=== PATIENT | male | born 1965 | race Caucasian/White ===

== ENCOUNTER 2018-02-03 06:41 | Emergency (ER) | payer MEDICAID, OTHER ==
[~2018-02-03] VITALS: Ht 175.3 cm; Wt 112.3 kg
[~2018-02-03 06:41] MED LIST: AMLO-511 PO; CLON.5 PO; METF-960 PO; QUET50XR PO; TRAZ150T79 PO; VENL-53 PO
[2018-02-03] MEDS ORDERED: METF-960 PO (07:01)
[2018-02-03] MEDS ORDERED: SERT100T12 PO (07:01)
[2018-02-03] MEDS ORDERED: LISI-661 PO (07:01)
[2018-02-03 07:13] LABS: GLUCOSE,POINT OF CARE 199 MG/DL (70-110)
[2018-02-03 07:50] VITALS: BP 123/78
== END 2018-02-03 07:57 | disposition home or self-care (01) ==
LOC: EMS 06:42
DX: F41.9 Anxiety disorder, unspecified (principal); F20.9 Schizophrenia, unspecified; Z79.84 Long term (current) use of oral hypoglycemic drugs; Z79.899 Other long term (current) drug therapy
CPT/HCPCS: 99284

== ENCOUNTER 2021-08-10 08:24 | Inpatient (IN) | payer MEDICAID, OTHER ==
[~2021-08-10] VITALS: Ht 175.3 cm; Wt 108.6 kg
[~2021-08-10 08:24] MED LIST changes: -AMLO-511 PO; -CLON.5 PO; +LISI-893 PO; +METF-1211 PO; -METF-960 PO; -QUET50XR PO; +SERT-162 PO; -TRAZ150T79 PO; -VENL-53 PO
[2021-08-10 09:05] LABS: BASOPHILS % (AUTO) 0.3 % (0.0-2.0); HEMATOCRIT 39.2 % (41-53); HEMOGLOBIN 13.4 g/dL (13.5-17.5); LYMPHOCYTES % (AUTO) 16.7 % (22.0-44.0); MEAN CORPUSCULAR HEMOGLOBIN 31.9 pg (26.0-34.0); MEAN CORPUSCULAR HGB CONC 34.2 G/dL (31.0-37.0); MEAN CORPUSCULAR VOLUME 93 fL (80-100); MONOCYTES # (AUTO) 0.5 K/uL (0.1-1.0); MONOCYTES % (AUTO) 8.2 % (2.0-9.0); NEUTROPHILS # (AUTO) 4.6 K/uL (1.8-7.7); NEUTROPHILS % (AUTO) 72.8 % (40.0-70.0); PLATELET COUNT (AUTO) 179 K/uL (150-450); RED CELL DISTRIBUTION WIDTH 13.2 % (11.5-14.5)
[2021-08-10 09:14] LABS: ANION GAP 4 mmol/L (8-16); CARBON DIOXIDE 33 mmol/L (22-29); CHLORIDE 101 mmol/L (98-107); CREATININE 0.97 mg/dL (0.60-1.30); GLOMERULAR FILTR. RATE CALC > 60 mL/min (>60); GLUCOSE,RANDOM 220 mg/dL (70-110); POTASSIUM 4.3 mmol/L (3.5-5.1); SODIUM SERUM 138 mmol/L (136-145); UREA NITROGEN, BLOOD 17 mg/dL (7-18)
[2021-08-10 09:15] LABS: AMPHET/METH SCREEN,URINE NEGATIVE (NEGATIVE); BARBITURATE SCREEN, URINE NEGATIVE (NEGATIVE); BENZODIAZEPINES SCREEN,URINE NEGATIVE (NEGATIVE); CANNABINOID SCREEN,URINE POSITIVE (NEGATIVE); COCAINE SCREEN,URINE NEGATIVE (NEGATIVE); METHADONE SCREEN, URINE NEGATIVE (NEGATIVE); OPIATE SCREEN,URINE NEGATIVE (NEGATIVE)
[2021-08-10 09:16] LABS: PHENCYCLIDINE SCREEN,URINE NEGATIVE (NEGATIVE)
[2021-08-10 09:20] LABS: ALANINE AMINOTRANSFERASE 19 U/L (12-78); ALBUMIN 3.6 g/dL (3.4-5.0); ALKALINE PHOSPHATASE 68 U/L (46-116); ASPARTATE AMINOTRANSFERASE 12 U/L (15-37); BILIRUBIN,TOTAL 0.4 mg/dL (0.1-1.0); TOTAL PROTEIN, SERUM 6.9 g/dL (6.4-8.2)
[2021-08-10] MEDS ORDERED: ZOLPIDEM TARTRATE 10 MG TABLET PO PRN (10:30)
[2021-08-10 10:44] LABS: APPEARANCE,URINE CLEAR (CLEAR); BILIRUBIN,URINE NEGATIVE (NEGATIVE); GLUCOSE, URINE (UA) NEGATIVE (NEGATIVE); KETONES,URINE NEGATIVE (NEGATIVE); LEUKOCYTE ESTERASE ,URINE NEGATIVE (NEGATIVE); NITRATE,URINE NEGATIVE (NEGATIVE); OCCULT BLOOD,URINE NEGATIVE (NEGATIVE); PROTEIN,URINE NEGATIVE (NEGATIVE); UROBILINOGEN,URINE <=1.0 mg/dL (<=1.0)
[2021-08-10 11:33] LABS: COVID AG,FIA SOURCE NASOPHARYNGEAL
[2021-08-10] MEDS ORDERED: TRAZ-257 PO (14:20)
[2021-08-10] MEDS ORDERED: HALOPERIDOL LACTATE 5 MG/ML VIAL IM ONE (17:15)
[2021-08-10] MEDS ORDERED: DiphenhydrAMINE HCL 50 MG/ML VIAL IM ONE (17:15)
[2021-08-10] MEDS ORDERED: LORazepam 2 MG/ML VIAL IM ONE (17:15)
[2021-08-10 20:44] VITALS: BP 151/90
[2021-08-10] MEDS ORDERED: PNEUMOCOCCAL VACCINE POLYVALENT 0.5 ML VIAL [PPSV23] IM. ONE (20:45)
[2021-08-11] MEDS: MetFORMIN HCL 500 MG TABLET PO SCH ×2 (06:51→16:32)
[2021-08-11] MEDS: LISINOPRIL 10 MG TABLET PO SCH (07:58)
[2021-08-11] MEDS ORDERED: PETROLATUM,WHITE 28 GM JELLY TP PRN (08:00)
[2021-08-11] MEDS ORDERED: ACETAMINOPHEN 325 MG TABLET PO PRN (08:00)
[2021-08-11] MEDS ORDERED: BENZOCAINE/MENTHOL LOZENGE PO PRN (08:00)
[2021-08-11] MEDS ORDERED: BACITRACIN 28 GM OINTMENT TP PRN (08:00)
[2021-08-11] MEDS ORDERED: ONDANSETRON HCL 4 MG TABLET PO PRN (08:00)
[2021-08-11] MEDS ORDERED: DOCUSATE SODIUM 100 MG CAPSULE PO PRN (08:00)
[2021-08-11] MEDS ORDERED: DEXTROSE 50%-WATER 25 GM/50 ML SYRINGE IVP PRN (08:00)
[2021-08-11] MEDS ORDERED: OMEPRAZOLE 20 MG CAPSULE PO PRN (08:00)
[2021-08-11] MEDS ORDERED: MAGNESIUM HYDROXIDE SUSPENSION 30 ML UDCUP PO PRN (08:00)
[2021-08-11] MEDS ORDERED: LOPERAMIDE HCL 2 MG CAPSULE PO PRN (08:00)
[2021-08-11] MEDS ORDERED: ALBUTEROL SULFATE HFA 90 MCG/PUFF 8 GM INHALER IH PRN (08:00)
[2021-08-11] MEDS ORDERED: CloNIDine HCL 0.1 MG TABLET PO PRN (08:00)
[2021-08-11] MEDS ORDERED: IBUPROFEN 600 MG TABLET PO PRN (08:00)
[2021-08-11 08:24] VITALS: BP 165/86
[2021-08-11] MEDS: INSULIN LISPRO 100 UNITS/ML SQ PRN ×2 (11:57→21:00)
[2021-08-11 12:11] LABS: GLUCOMETER DEV NAME(LOC) 3E.C; GLUCOSE,POINT OF CARE 179 MG/DL (70-110)
[2021-08-11 16:08] VITALS: BP 156/86
[2021-08-11 16:56] LABS: GLUCOMETER DEV NAME(LOC) 3E.C; GLUCOSE,POINT OF CARE 120 MG/DL (70-110)
[2021-08-11] MEDS: TraZODone HCL 50 MG TABLET PO SCH (20:25)
[2021-08-11 20:36] LABS: GLUCOMETER DEV NAME(LOC) 3E.C; GLUCOSE,POINT OF CARE 186 MG/DL (70-110)
[2021-08-12 06:26] LABS: GLUCOMETER DEV NAME(LOC) 3E.C; GLUCOSE,POINT OF CARE 168 MG/DL (70-110)
[2021-08-12] MEDS: INSULIN LISPRO 100 UNITS/ML SQ PRN ×3 (06:51→16:59)
[2021-08-12] MEDS: MetFORMIN HCL 500 MG TABLET PO SCH ×2 (07:04→16:50)
[2021-08-12 08:11] VITALS: BP 145/87
[2021-08-12] MEDS: LISINOPRIL 10 MG TABLET PO SCH (08:21)
[2021-08-12] MEDS: PARoxetine HCL 20 MG TABLET PO SCH (08:21)
[2021-08-12 11:26] LABS: GLUCOMETER DEV NAME(LOC) 3E.C; GLUCOSE,POINT OF CARE 211 MG/DL (70-110)
[2021-08-12 16:16] LABS: GLUCOMETER DEV NAME(LOC) 3E.C; GLUCOSE,POINT OF CARE 151 MG/DL (70-110)
[2021-08-12 16:21] VITALS: BP 164/87
[2021-08-12] MEDS: LORazepam 2 MG TABLET PO PRN (16:50)
[2021-08-12] MEDS: QUEtiapine FUMARATE 100 MG TABLET PO PRN (19:00)
[2021-08-12] MEDS: TraZODone HCL 50 MG TABLET PO SCH (20:38)
[2021-08-12 20:46] LABS: GLUCOMETER DEV NAME(LOC) 3E.C; GLUCOSE,POINT OF CARE 108 MG/DL (70-110)
[2021-08-13 06:31] LABS: GLUCOMETER DEV NAME(LOC) 3E.C; GLUCOSE,POINT OF CARE 138 MG/DL (70-110)
[2021-08-13] MEDS: INSULIN LISPRO 100 UNITS/ML SQ PRN ×3 (06:36→17:14)
[2021-08-13] MEDS: MetFORMIN HCL 500 MG TABLET PO SCH ×2 (06:46→17:00)
[2021-08-13 08:09] VITALS: BP 133/78
[2021-08-13] MEDS: LISINOPRIL 10 MG TABLET PO SCH (10:00)
[2021-08-13] MEDS: PARoxetine HCL 20 MG TABLET PO SCH (10:00)
[2021-08-13 11:41] LABS: GLUCOMETER DEV NAME(LOC) 3E.C; GLUCOSE,POINT OF CARE 212 MG/DL (70-110)
[2021-08-13] MEDS: QUEtiapine FUMARATE 100 MG TABLET PO PRN (16:00)
[2021-08-13 16:26] LABS: GLUCOMETER DEV NAME(LOC) 3E.C; GLUCOSE,POINT OF CARE 183 MG/DL (70-110)
[2021-08-13 16:48] VITALS: BP 149/89
[2021-08-13] MEDS: LORazepam 2 MG TABLET PO PRN (19:30)
[2021-08-13] MEDS: TraZODone HCL 50 MG TABLET PO SCH (20:41)
[2021-08-13 20:51] LABS: GLUCOMETER DEV NAME(LOC) 3E.C; GLUCOSE,POINT OF CARE 120 MG/DL (70-110)
[2021-08-14] MEDS: MetFORMIN HCL 500 MG TABLET PO SCH ×2 (06:33→17:38)
[2021-08-14] MEDS: INSULIN LISPRO 100 UNITS/ML SQ PRN ×4 (06:33→20:53)
[2021-08-14 06:36] LABS: GLUCOMETER DEV NAME(LOC) 3E.C; GLUCOSE,POINT OF CARE 193 MG/DL (70-110)
[2021-08-14 08:00] VITALS: BP 162/92
[2021-08-14] MEDS: PARoxetine HCL 20 MG TABLET PO SCH (08:53)
[2021-08-14] MEDS: LISINOPRIL 10 MG TABLET PO SCH (08:54)
[2021-08-14 12:07] LABS: GLUCOMETER DEV NAME(LOC) 3E.C; GLUCOSE,POINT OF CARE 227 MG/DL (70-110)
[2021-08-14 16:21] VITALS: BP 132/74
[2021-08-14 16:46] LABS: GLUCOMETER DEV NAME(LOC) 3E.C; GLUCOSE,POINT OF CARE 196 MG/DL (70-110)
[2021-08-14] MEDS: TraZODone HCL 50 MG TABLET PO SCH (20:42)
[2021-08-14 21:01] LABS: GLUCOMETER DEV NAME(LOC) 3E.C; GLUCOSE,POINT OF CARE 180 MG/DL (70-110)
[2021-08-15 06:16] LABS: GLUCOMETER DEV NAME(LOC) 3E.C; GLUCOSE,POINT OF CARE 172 MG/DL (70-110)
[2021-08-15] MEDS: INSULIN LISPRO 100 UNITS/ML SQ PRN ×3 (06:42→20:52)
[2021-08-15] MEDS: MetFORMIN HCL 500 MG TABLET PO SCH ×2 (06:44→17:20)
[2021-08-15 08:21] VITALS: BP 142/83
[2021-08-15 09:14] LABS: CHOL/HDL RATIO 3.2 (4.2-7.3)
[2021-08-15] MEDS: PARoxetine HCL 20 MG TABLET PO SCH (09:30)
[2021-08-15] MEDS: LISINOPRIL 10 MG TABLET PO SCH (09:30)
[2021-08-15 11:46] LABS: GLUCOMETER DEV NAME(LOC) 3E.C; GLUCOSE,POINT OF CARE 144 MG/DL (70-110)
[2021-08-15] MEDS: QUEtiapine FUMARATE 100 MG TABLET PO PRN (16:12)
[2021-08-15 16:36] LABS: GLUCOMETER DEV NAME(LOC) 3E.C; GLUCOSE,POINT OF CARE 167 MG/DL (70-110)
[2021-08-15 17:00] VITALS: BP 125/72
[2021-08-15] MEDS: TraZODone HCL 50 MG TABLET PO SCH (20:44)
[2021-08-15 21:06] LABS: GLUCOMETER DEV NAME(LOC) 3E.C; GLUCOSE,POINT OF CARE 180 MG/DL (70-110)
[2021-08-16 06:31] LABS: GLUCOMETER DEV NAME(LOC) 3E.C; GLUCOSE,POINT OF CARE 175 MG/DL (70-110)
[2021-08-16] MEDS: MetFORMIN HCL 500 MG TABLET PO SCH ×2 (07:01→17:11)
[2021-08-16] MEDS: INSULIN LISPRO 100 UNITS/ML SQ PRN ×3 (07:07→21:34)
[2021-08-16] MEDS: PARoxetine HCL 20 MG TABLET PO SCH (08:18)
[2021-08-16] MEDS: QUEtiapine FUMARATE 100 MG TABLET PO PRN (08:19)
[2021-08-16] MEDS: LISINOPRIL 10 MG TABLET PO SCH (08:19)
[2021-08-16 09:43] VITALS: BP 151/99
[2021-08-16 11:30] LABS: GLUCOMETER DEV NAME(LOC) 3E.C; GLUCOSE,POINT OF CARE 139 MG/DL (70-110)
[2021-08-16 16:00] VITALS: BP 140/81
[2021-08-16 17:06] LABS: GLUCOMETER DEV NAME(LOC) 3E.C; GLUCOSE,POINT OF CARE 157 MG/DL (70-110)
[2021-08-16] MEDS: TraZODone HCL 50 MG TABLET PO SCH (20:39)
[2021-08-16 22:36] LABS: GLUCOMETER DEV NAME(LOC) 3E.C; GLUCOSE,POINT OF CARE 152 MG/DL (70-110)
[2021-08-17 06:26] LABS: GLUCOMETER DEV NAME(LOC) 3E.C; GLUCOSE,POINT OF CARE 196 MG/DL (70-110)
[2021-08-17] MEDS: MetFORMIN HCL 500 MG TABLET PO SCH ×2 (06:56→16:35)
[2021-08-17] MEDS: INSULIN LISPRO 100 UNITS/ML SQ PRN ×3 (07:03→17:43)
[2021-08-17 08:29] VITALS: BP 140/78
[2021-08-17] MEDS: LISINOPRIL 10 MG TABLET PO SCH (09:22)
[2021-08-17] MEDS: PARoxetine HCL 20 MG TABLET PO SCH (09:22)
[2021-08-17] MEDS: QUEtiapine FUMARATE 100 MG TABLET PO PRN (09:24)
[2021-08-17 11:26] LABS: GLUCOMETER DEV NAME(LOC) 3E.C; GLUCOSE,POINT OF CARE 172 MG/DL (70-110)
[2021-08-17 14:34] LABS: COVID AG,FIA SOURCE NASOPHARYNGEAL
[2021-08-17 16:11] VITALS: BP 121/79
[2021-08-17 17:10] LABS: GLUCOMETER DEV NAME(LOC) 3E.C; GLUCOSE,POINT OF CARE 191 MG/DL (70-110)
[2021-08-17] MEDS: TraZODone HCL 50 MG TABLET PO SCH (20:11)
[2021-08-17 20:50] LABS: GLUCOMETER DEV NAME(LOC) 3E.C; GLUCOSE,POINT OF CARE 112 MG/DL (70-110)
[2021-08-18 06:16] LABS: GLUCOMETER DEV NAME(LOC) 3E.C; GLUCOSE,POINT OF CARE 185 MG/DL (70-110)
[2021-08-18] MEDS: MetFORMIN HCL 500 MG TABLET PO SCH ×2 (06:40→17:01)
[2021-08-18] MEDS: INSULIN LISPRO 100 UNITS/ML SQ PRN ×2 (06:43→17:05)
[2021-08-18 08:19] VITALS: BP 148/88
[2021-08-18] MEDS: PARoxetine HCL 20 MG TABLET PO SCH (08:47)
[2021-08-18] MEDS: LISINOPRIL 10 MG TABLET PO SCH (08:47)
[2021-08-18 10:51] LABS: GLUCOMETER DEV NAME(LOC) 3E.C; GLUCOSE,POINT OF CARE 134 MG/DL (70-110)
[2021-08-18 16:31] LABS: GLUCOMETER DEV NAME(LOC) 3E.C; GLUCOSE,POINT OF CARE 168 MG/DL (70-110)
[2021-08-18] MEDS: QUEtiapine FUMARATE 100 MG TABLET PO PRN (17:01)
[2021-08-18 17:14] VITALS: BP 112/68
[2021-08-18] MEDS: LORazepam 2 MG TABLET PO PRN (19:03)
[2021-08-18] MEDS: TraZODone HCL 50 MG TABLET PO SCH (20:22)
[2021-08-18 21:11] LABS: GLUCOMETER DEV NAME(LOC) 3E.C; GLUCOSE,POINT OF CARE 136 MG/DL (70-110)
[2021-08-19 06:13] LABS: GLUCOMETER DEV NAME(LOC) 3E.C; GLUCOSE,POINT OF CARE 139 MG/DL (70-110)
[2021-08-19] MEDS: MetFORMIN HCL 500 MG TABLET PO SCH ×2 (06:48→17:31)
[2021-08-19] MEDS: INSULIN LISPRO 100 UNITS/ML SQ PRN ×3 (07:13→16:37)
[2021-08-19 08:00] VITALS: BP 124/74
[2021-08-19] MEDS: LISINOPRIL 10 MG TABLET PO SCH (08:32)
[2021-08-19] MEDS: PARoxetine HCL 20 MG TABLET PO SCH (08:32)
[2021-08-19 12:51] LABS: GLUCOMETER DEV NAME(LOC) 3E.C; GLUCOSE,POINT OF CARE 241 MG/DL (70-110)
[2021-08-19 16:00] VITALS: BP 106/60
[2021-08-19 16:46] LABS: GLUCOMETER DEV NAME(LOC) 3E.C; GLUCOSE,POINT OF CARE 151 MG/DL (70-110)
[2021-08-19] MEDS: TraZODone HCL 50 MG TABLET PO SCH (20:24)
[2021-08-19] MEDS: QUEtiapine FUMARATE 100 MG TABLET PO PRN (20:24)
[2021-08-19 20:46] LABS: GLUCOMETER DEV NAME(LOC) 3E.C; GLUCOSE,POINT OF CARE 130 MG/DL (70-110)
[2021-08-20 06:51] LABS: GLUCOMETER DEV NAME(LOC) 3E.C; GLUCOSE,POINT OF CARE 134 MG/DL (70-110)
[2021-08-20] MEDS: INSULIN LISPRO 100 UNITS/ML SQ PRN ×3 (07:00→21:35)
[2021-08-20] MEDS: MetFORMIN HCL 500 MG TABLET PO SCH ×2 (07:00→17:48)
[2021-08-20 08:18] VITALS: BP 131/83
[2021-08-20] MEDS: PARoxetine HCL 20 MG TABLET PO SCH (11:22)
[2021-08-20] MEDS: LISINOPRIL 10 MG TABLET PO SCH (11:22)
[2021-08-20 11:26] LABS: GLUCOMETER DEV NAME(LOC) 3E.C; GLUCOSE,POINT OF CARE 184 MG/DL (70-110)
[2021-08-20] MEDS: QUEtiapine FUMARATE 100 MG TABLET PO PRN (16:30)
[2021-08-20 16:36] LABS: GLUCOMETER DEV NAME(LOC) 3E.C; GLUCOSE,POINT OF CARE 113 MG/DL (70-110)
[2021-08-20 17:00] VITALS: BP 147/79
[2021-08-20] MEDS: TraZODone HCL 50 MG TABLET PO SCH (21:16)
[2021-08-20 21:51] LABS: GLUCOMETER DEV NAME(LOC) 3E.C; GLUCOSE,POINT OF CARE 147 MG/DL (70-110)
[2021-08-21] MEDS: MetFORMIN HCL 500 MG TABLET PO SCH ×2 (06:36→17:10)
[2021-08-21 06:37] LABS: GLUCOMETER DEV NAME(LOC) 3E.C; GLUCOSE,POINT OF CARE 157 MG/DL (70-110)
[2021-08-21] MEDS: INSULIN LISPRO 100 UNITS/ML SQ PRN ×4 (06:42→20:53)
[2021-08-21 08:27] VITALS: BP 144/90
[2021-08-21] MEDS: PARoxetine HCL 20 MG TABLET PO SCH (08:50)
[2021-08-21] MEDS: QUEtiapine FUMARATE 100 MG TABLET PO PRN ×2 (08:50→16:13)
[2021-08-21] MEDS: LISINOPRIL 10 MG TABLET PO SCH (08:50)
[2021-08-21 11:36] LABS: GLUCOMETER DEV NAME(LOC) 3E.C; GLUCOSE,POINT OF CARE 153 MG/DL (70-110)
[2021-08-21 16:21] VITALS: BP 160/82
[2021-08-21 16:31] LABS: GLUCOMETER DEV NAME(LOC) 3E.C; GLUCOSE,POINT OF CARE 160 MG/DL (70-110)
[2021-08-21] MEDS: TraZODone HCL 50 MG TABLET PO SCH (20:37)
[2021-08-21 21:21] LABS: GLUCOMETER DEV NAME(LOC) 3E.C; GLUCOSE,POINT OF CARE 161 MG/DL (70-110)
[2021-08-22 05:56] LABS: GLUCOMETER DEV NAME(LOC) 3E.C; GLUCOSE,POINT OF CARE 147 MG/DL (70-110)
[2021-08-22] MEDS: MetFORMIN HCL 500 MG TABLET PO SCH ×2 (06:34→17:00)
[2021-08-22] MEDS: INSULIN LISPRO 100 UNITS/ML SQ PRN ×4 (06:34→21:02)
[2021-08-22 08:19] VITALS: BP 122/79
[2021-08-22] MEDS: LISINOPRIL 10 MG TABLET PO SCH (09:16)
[2021-08-22] MEDS: PARoxetine HCL 20 MG TABLET PO SCH (09:16)
[2021-08-22 11:01] LABS: GLUCOMETER DEV NAME(LOC) 3E.C; GLUCOSE,POINT OF CARE 158 MG/DL (70-110)
[2021-08-22 16:11] LABS: GLUCOMETER DEV NAME(LOC) 3E.C; GLUCOSE,POINT OF CARE 156 MG/DL (70-110)
[2021-08-22 16:57] VITALS: BP 157/75
[2021-08-22] MEDS: QUEtiapine FUMARATE 100 MG TABLET PO PRN (17:00)
[2021-08-22] MEDS: LORazepam 2 MG TABLET PO PRN (19:00)
[2021-08-22 21:01] LABS: GLUCOMETER DEV NAME(LOC) 3E.C; GLUCOSE,POINT OF CARE 153 MG/DL (70-110)
[2021-08-22] MEDS: TraZODone HCL 50 MG TABLET PO SCH (21:02)
[2021-08-23] MEDS: MetFORMIN HCL 500 MG TABLET PO SCH ×2 (06:44→16:11)
[2021-08-23 07:01] LABS: GLUCOMETER DEV NAME(LOC) 3E.C; GLUCOSE,POINT OF CARE 111 MG/DL (70-110)
[2021-08-23] MEDS: LISINOPRIL 10 MG TABLET PO SCH (07:58)
[2021-08-23] MEDS: PARoxetine HCL 20 MG TABLET PO SCH (07:58)
[2021-08-23 08:31] VITALS: BP 166/95
[2021-08-23 11:40] LABS: GLUCOMETER DEV NAME(LOC) 3E.C; GLUCOSE,POINT OF CARE 160 MG/DL (70-110)
[2021-08-23] MEDS: INSULIN LISPRO 100 UNITS/ML SQ PRN ×2 (12:20→20:28)
[2021-08-23 16:04] VITALS: BP 157/91
[2021-08-23] MEDS: QUEtiapine FUMARATE 100 MG TABLET PO PRN (16:11)
[2021-08-23 16:26] LABS: GLUCOMETER DEV NAME(LOC) 3E.C; GLUCOSE,POINT OF CARE 133 MG/DL (70-110)
[2021-08-23 20:41] LABS: GLUCOMETER DEV NAME(LOC) 3E.C; GLUCOSE,POINT OF CARE 162 MG/DL (70-110)
[2021-08-23] MEDS: TraZODone HCL 50 MG TABLET PO SCH (21:27)
[2021-08-24 06:07] LABS: COVID AG,FIA SOURCE NASAL SWAB
[2021-08-24 06:12] LABS: GLUCOMETER DEV NAME(LOC) 3E.C; GLUCOSE,POINT OF CARE 186 MG/DL (70-110)
[2021-08-24] MEDS: MetFORMIN HCL 500 MG TABLET PO SCH ×2 (06:39→17:41)
[2021-08-24] MEDS: INSULIN LISPRO 100 UNITS/ML SQ PRN ×4 (06:42→20:30)
[2021-08-24 08:00] VITALS: BP 156/94
[2021-08-24] MEDS: PARoxetine HCL 20 MG TABLET PO SCH (08:09)
[2021-08-24] MEDS: LISINOPRIL 10 MG TABLET PO SCH (08:09)
[2021-08-24 10:45] LABS: GLUCOMETER DEV NAME(LOC) 3E.C; GLUCOSE,POINT OF CARE 161 MG/DL (70-110)
[2021-08-24] MEDS: QUEtiapine FUMARATE 100 MG TABLET PO PRN (16:21)
[2021-08-24 16:41] LABS: GLUCOMETER DEV NAME(LOC) 3E.C; GLUCOSE,POINT OF CARE 150 MG/DL (70-110)
[2021-08-24 16:49] VITALS: BP 168/78
[2021-08-24] MEDS: TraZODone HCL 50 MG TABLET PO SCH (20:26)
[2021-08-24 20:46] LABS: GLUCOMETER DEV NAME(LOC) 3E.C; GLUCOSE,POINT OF CARE 141 MG/DL (70-110)
[2021-08-25] MEDS: MetFORMIN HCL 500 MG TABLET PO SCH ×2 (06:34→16:56)
[2021-08-25] MEDS: INSULIN LISPRO 100 UNITS/ML SQ PRN ×3 (06:39→20:49)
[2021-08-25 06:46] LABS: GLUCOMETER DEV NAME(LOC) 3E.C; GLUCOSE,POINT OF CARE 164 MG/DL (70-110)
[2021-08-25] MEDS: PARoxetine HCL 20 MG TABLET PO SCH (07:58)
[2021-08-25] MEDS: LISINOPRIL 10 MG TABLET PO SCH (07:58)
[2021-08-25 08:36] VITALS: BP 150/85
[2021-08-25 11:32] LABS: GLUCOMETER DEV NAME(LOC) 3E.C; GLUCOSE,POINT OF CARE 146 MG/DL (70-110)
[2021-08-25 16:10] VITALS: BP 169/97
[2021-08-25 16:46] LABS: GLUCOMETER DEV NAME(LOC) 3E.C; GLUCOSE,POINT OF CARE 123 MG/DL (70-110)
[2021-08-25] MEDS: LORazepam 2 MG TABLET PO PRN (16:57)
[2021-08-25 20:36] LABS: GLUCOMETER DEV NAME(LOC) 3E.C; GLUCOSE,POINT OF CARE 206 MG/DL (70-110)
[2021-08-25] MEDS: TraZODone HCL 50 MG TABLET PO SCH (20:38)
[2021-08-26 06:12] LABS: GLUCOMETER DEV NAME(LOC) 3E.C; GLUCOSE,POINT OF CARE 111 MG/DL (70-110)
[2021-08-26] MEDS: INSULIN LISPRO 100 UNITS/ML SQ PRN ×3 (06:34→17:09)
[2021-08-26] MEDS: MetFORMIN HCL 500 MG TABLET PO SCH ×2 (06:41→16:30)
[2021-08-26 08:19] VITALS: BP 128/72
[2021-08-26] MEDS: PARoxetine HCL 20 MG TABLET PO SCH (09:11)
[2021-08-26] MEDS: LISINOPRIL 10 MG TABLET PO SCH (09:11)
[2021-08-26 10:02] LABS: COVID AG,FIA SOURCE NASAL SWAB
[2021-08-26 11:41] LABS: GLUCOMETER DEV NAME(LOC) 3E.C; GLUCOSE,POINT OF CARE 221 MG/DL (70-110)
[2021-08-26 16:11] LABS: GLUCOMETER DEV NAME(LOC) 3E.C; GLUCOSE,POINT OF CARE 174 MG/DL (70-110)
[2021-08-26] MEDS: QUEtiapine FUMARATE 100 MG TABLET PO PRN (16:17)
[2021-08-26 16:31] VITALS: BP_SYST 120; BP_SYST 154; BP_DIAS 92; BP_DIAS 97
[2021-08-26] MEDS: TraZODone HCL 50 MG TABLET PO SCH (20:26)
[2021-08-26 20:31] LABS: GLUCOMETER DEV NAME(LOC) 3E.C; GLUCOSE,POINT OF CARE 120 MG/DL (70-110)
[2021-08-27 06:01] LABS: GLUCOMETER DEV NAME(LOC) 3E.C; GLUCOSE,POINT OF CARE 126 MG/DL (70-110)
[2021-08-27] MEDS: MetFORMIN HCL 500 MG TABLET PO SCH ×2 (06:44→16:09)
[2021-08-27] MEDS: INSULIN LISPRO 100 UNITS/ML SQ PRN ×3 (06:46→17:06)
[2021-08-27 08:12] VITALS: BP 151/84
[2021-08-27] MEDS: LISINOPRIL 10 MG TABLET PO SCH (08:41)
[2021-08-27] MEDS: PARoxetine HCL 20 MG TABLET PO SCH (08:41)
[2021-08-27 11:21] LABS: GLUCOMETER DEV NAME(LOC) 3E.C; GLUCOSE,POINT OF CARE 169 MG/DL (70-110)
[2021-08-27 16:03] VITALS: BP 123/76
[2021-08-27 16:06] LABS: GLUCOMETER DEV NAME(LOC) 3E.C; GLUCOSE,POINT OF CARE 203 MG/DL (70-110)
[2021-08-27] MEDS: QUEtiapine FUMARATE 100 MG TABLET PO PRN (16:09)
[2021-08-27] MEDS: TraZODone HCL 50 MG TABLET PO SCH (20:13)
[2021-08-27 20:27] LABS: GLUCOMETER DEV NAME(LOC) 3E.C; GLUCOSE,POINT OF CARE 119 MG/DL (70-110)
[2021-08-28 06:17] LABS: GLUCOMETER DEV NAME(LOC) 3E.C; GLUCOSE,POINT OF CARE 134 MG/DL (70-110)
[2021-08-28] MEDS: INSULIN LISPRO 100 UNITS/ML SQ PRN ×3 (06:36→16:32)
[2021-08-28] MEDS: MetFORMIN HCL 500 MG TABLET PO SCH ×3 (06:43→17:35)
[2021-08-28] MEDS: PARoxetine HCL 20 MG TABLET PO SCH (08:14)
[2021-08-28] MEDS: LISINOPRIL 10 MG TABLET PO SCH (08:16)
[2021-08-28 08:17] VITALS: BP 139/76
[2021-08-28 09:21] LABS: GLUCOMETER DEV NAME(LOC) 3E.C; GLUCOSE,POINT OF CARE 216 MG/DL (70-110)
[2021-08-28 09:52] LABS: COVID AG,FIA SOURCE NASAL SWAB
[2021-08-28 12:11] LABS: GLUCOMETER DEV NAME(LOC) 3E.C; GLUCOSE,POINT OF CARE 136 MG/DL (70-110)
[2021-08-28] MEDS: RisperiDONE 2 MG TABLET PO SCH ×2 (13:25→16:10)
[2021-08-28 16:06] VITALS: BP 128/77
[2021-08-28] MEDS: QUEtiapine FUMARATE 100 MG TABLET PO PRN (16:10)
[2021-08-28 16:36] LABS: GLUCOMETER DEV NAME(LOC) 3E.C; GLUCOSE,POINT OF CARE 190 MG/DL (70-110)
[2021-08-28] MEDS: TraZODone HCL 50 MG TABLET PO SCH (20:34)
[2021-08-28 21:31] LABS: GLUCOMETER DEV NAME(LOC) 3E.C; GLUCOSE,POINT OF CARE 132 MG/DL (70-110)
[2021-08-29 06:11] LABS: GLUCOMETER DEV NAME(LOC) 3E.C; GLUCOSE,POINT OF CARE 185 MG/DL (70-110)
[2021-08-29] MEDS: MetFORMIN HCL 500 MG TABLET PO SCH ×2 (06:35→17:47)
[2021-08-29] MEDS: INSULIN LISPRO 100 UNITS/ML SQ PRN ×4 (06:41→21:12)
[2021-08-29 08:00] VITALS: BP 128/75
[2021-08-29] MEDS: LISINOPRIL 10 MG TABLET PO SCH (09:30)
[2021-08-29] MEDS: PARoxetine HCL 20 MG TABLET PO SCH (09:30)
[2021-08-29] MEDS: RisperiDONE 2 MG TABLET PO SCH ×2 (09:30→16:11)
[2021-08-29 12:57] LABS: GLUCOMETER DEV NAME(LOC) 3E.C; GLUCOSE,POINT OF CARE 179 MG/DL (70-110)
[2021-08-29] MEDS: QUEtiapine FUMARATE 100 MG TABLET PO PRN (16:11)
[2021-08-29 16:25] VITALS: BP 104/70
[2021-08-29 16:26] LABS: GLUCOMETER DEV NAME(LOC) 3E.C; GLUCOSE,POINT OF CARE 185 MG/DL (70-110)
[2021-08-29] MEDS: TraZODone HCL 50 MG TABLET PO SCH (20:19)
[2021-08-29 20:51] LABS: GLUCOMETER DEV NAME(LOC) 3E.C; GLUCOSE,POINT OF CARE 206 MG/DL (70-110)
[2021-08-30 06:40] LABS: GLUCOMETER DEV NAME(LOC) 3E.C; GLUCOSE,POINT OF CARE 150 MG/DL (70-110)
[2021-08-30] MEDS: MetFORMIN HCL 500 MG TABLET PO SCH ×2 (06:41→17:05)
[2021-08-30] MEDS: INSULIN LISPRO 100 UNITS/ML SQ PRN ×3 (06:42→20:58)
[2021-08-30] MEDS: PARoxetine HCL 20 MG TABLET PO SCH (08:09)
[2021-08-30] MEDS: LISINOPRIL 10 MG TABLET PO SCH (08:09)
[2021-08-30] MEDS: RisperiDONE 2 MG TABLET PO SCH ×2 (08:09→17:04)
[2021-08-30 08:30] VITALS: BP 120/67
[2021-08-30] MEDS: QUEtiapine FUMARATE 100 MG TABLET PO PRN ×2 (09:36→17:04)
[2021-08-30 11:56] LABS: GLUCOMETER DEV NAME(LOC) 3E.C; GLUCOSE,POINT OF CARE 143 MG/DL (70-110)
[2021-08-30 16:29] VITALS: BP 130/76
[2021-08-30 16:56] LABS: GLUCOMETER DEV NAME(LOC) 3E.C; GLUCOSE,POINT OF CARE 111 MG/DL (70-110)
[2021-08-30 20:51] LABS: GLUCOMETER DEV NAME(LOC) 3E.C; GLUCOSE,POINT OF CARE 168 MG/DL (70-110)
[2021-08-30] MEDS: TraZODone HCL 50 MG TABLET PO SCH (20:56)
[2021-08-31 06:40] LABS: GLUCOMETER DEV NAME(LOC) 3E.C; GLUCOSE,POINT OF CARE 128 MG/DL (70-110)
[2021-08-31] MEDS: INSULIN LISPRO 100 UNITS/ML SQ PRN ×3 (06:53→16:51)
[2021-08-31] MEDS: MetFORMIN HCL 500 MG TABLET PO SCH ×2 (06:55→16:43)
[2021-08-31] MEDS: LISINOPRIL 10 MG TABLET PO SCH (08:18)
[2021-08-31] MEDS: PARoxetine HCL 20 MG TABLET PO SCH (08:19)
[2021-08-31] MEDS: RisperiDONE 2 MG TABLET PO SCH ×2 (08:19→16:43)
[2021-08-31 08:38] VITALS: BP 154/90
[2021-08-31 11:31] LABS: GLUCOMETER DEV NAME(LOC) 3E.C; GLUCOSE,POINT OF CARE 144 MG/DL (70-110)
[2021-08-31 16:22] VITALS: BP 114/74
[2021-08-31 16:41] LABS: GLUCOMETER DEV NAME(LOC) 3E.C; GLUCOSE,POINT OF CARE 144 MG/DL (70-110)
[2021-08-31] MEDS: LORazepam 2 MG TABLET PO PRN (18:18)
[2021-08-31] MEDS: TraZODone HCL 50 MG TABLET PO SCH (20:30)
[2021-08-31 20:32] LABS: GLUCOMETER DEV NAME(LOC) 3E.C; GLUCOSE,POINT OF CARE 103 MG/DL (70-110)
[2021-09-01 06:26] LABS: GLUCOMETER DEV NAME(LOC) 3E.C; GLUCOSE,POINT OF CARE 134 MG/DL (70-110)
[2021-09-01] MEDS: MetFORMIN HCL 500 MG TABLET PO SCH ×2 (07:03→16:42)
[2021-09-01 08:24] VITALS: BP 143/88
[2021-09-01] MEDS: PARoxetine HCL 20 MG TABLET PO SCH (08:43)
[2021-09-01] MEDS: RisperiDONE 2 MG TABLET PO SCH ×2 (08:43→16:42)
[2021-09-01] MEDS: LISINOPRIL 10 MG TABLET PO SCH (08:43)
[2021-09-01] MEDS: QUEtiapine FUMARATE 100 MG TABLET PO PRN (08:46)
[2021-09-01 11:26] LABS: GLUCOMETER DEV NAME(LOC) 3E.C; GLUCOSE,POINT OF CARE 157 MG/DL (70-110)
[2021-09-01] MEDS: INSULIN LISPRO 100 UNITS/ML SQ PRN ×2 (12:03→17:06)
[2021-09-01 16:26] LABS: GLUCOMETER DEV NAME(LOC) 3E.C; GLUCOSE,POINT OF CARE 189 MG/DL (70-110)
[2021-09-01] MEDS: LORazepam 2 MG TABLET PO PRN (16:43)
[2021-09-01 16:59] VITALS: BP 107/58
[2021-09-01 20:36] LABS: GLUCOMETER DEV NAME(LOC) 3E.C; GLUCOSE,POINT OF CARE 133 MG/DL (70-110)
[2021-09-01] MEDS: TraZODone HCL 50 MG TABLET PO SCH (20:45)
[2021-09-02] MEDS: INSULIN LISPRO 100 UNITS/ML SQ PRN ×3 (06:42→16:44)
[2021-09-02] MEDS: MetFORMIN HCL 500 MG TABLET PO SCH ×2 (06:44→16:33)
[2021-09-02 06:46] LABS: GLUCOMETER DEV NAME(LOC) 3E.C; GLUCOSE,POINT OF CARE 157 MG/DL (70-110)
[2021-09-02] MEDS: PARoxetine HCL 20 MG TABLET PO SCH (08:25)
[2021-09-02] MEDS: RisperiDONE 2 MG TABLET PO SCH ×2 (08:25→16:33)
[2021-09-02] MEDS: LISINOPRIL 10 MG TABLET PO SCH (08:25)
[2021-09-02 10:20] VITALS: BP 112/68
[2021-09-02 11:31] LABS: GLUCOMETER DEV NAME(LOC) 3E.C; GLUCOSE,POINT OF CARE 164 MG/DL (70-110)
[2021-09-02 16:29] VITALS: BP 104/65
[2021-09-02 16:56] LABS: GLUCOMETER DEV NAME(LOC) 3E.C; GLUCOSE,POINT OF CARE 190 MG/DL (70-110)
[2021-09-02] MEDS: TraZODone HCL 50 MG TABLET PO SCH (20:29)
[2021-09-02] MEDS: QUEtiapine FUMARATE 100 MG TABLET PO PRN (20:29)
[2021-09-02 20:45] LABS: GLUCOMETER DEV NAME(LOC) 3E.C; GLUCOSE,POINT OF CARE 132 MG/DL (70-110)
[2021-09-03 06:21] LABS: GLUCOMETER DEV NAME(LOC) 3E.C; GLUCOSE,POINT OF CARE 134 MG/DL (70-110)
[2021-09-03] MEDS: INSULIN LISPRO 100 UNITS/ML SQ PRN ×3 (06:33→20:33)
[2021-09-03] MEDS: MetFORMIN HCL 500 MG TABLET PO SCH ×2 (06:43→17:45)
[2021-09-03] MEDS: RisperiDONE 2 MG TABLET PO SCH ×2 (07:59→16:27)
[2021-09-03] MEDS: PARoxetine HCL 20 MG TABLET PO SCH (07:59)
[2021-09-03] MEDS: LISINOPRIL 10 MG TABLET PO SCH (07:59)
[2021-09-03] MEDS: QUEtiapine FUMARATE 100 MG TABLET PO PRN ×3 (07:59→16:26)
[2021-09-03 08:17] VITALS: BP 153/87
[2021-09-03 11:26] LABS: GLUCOMETER DEV NAME(LOC) 3E.C; GLUCOSE,POINT OF CARE 202 MG/DL (70-110)
[2021-09-03] MEDS: LORazepam 2 MG TABLET PO PRN (12:22)
[2021-09-03 16:10] VITALS: BP 108/75
[2021-09-03 17:01] LABS: GLUCOMETER DEV NAME(LOC) 3E.C; GLUCOSE,POINT OF CARE 112 MG/DL (70-110)
[2021-09-03] MEDS: TraZODone HCL 50 MG TABLET PO SCH (20:31)
[2021-09-03 20:51] LABS: GLUCOMETER DEV NAME(LOC) 3E.C; GLUCOSE,POINT OF CARE 141 MG/DL (70-110)
[2021-09-04 06:16] LABS: GLUCOMETER DEV NAME(LOC) 3E.C; GLUCOSE,POINT OF CARE 134 MG/DL (70-110)
[2021-09-04] MEDS: INSULIN LISPRO 100 UNITS/ML SQ PRN ×4 (06:31→21:13)
[2021-09-04] MEDS: MetFORMIN HCL 500 MG TABLET PO SCH ×2 (06:43→17:30)
[2021-09-04 08:11] LABS: COVID AG,FIA SOURCE NASAL SWAB
[2021-09-04 08:15] VITALS: BP 114/83
[2021-09-04] MEDS: RisperiDONE 2 MG TABLET PO SCH ×2 (08:24→16:12)
[2021-09-04] MEDS: LISINOPRIL 10 MG TABLET PO SCH (08:24)
[2021-09-04] MEDS: PARoxetine HCL 20 MG TABLET PO SCH (08:24)
[2021-09-04] MEDS: QUEtiapine FUMARATE 100 MG TABLET PO PRN ×2 (10:07→16:12)
[2021-09-04 11:25] LABS: GLUCOMETER DEV NAME(LOC) 3E.C; GLUCOSE,POINT OF CARE 184 MG/DL (70-110)
[2021-09-04] MEDS: MAG HYDROX/AL HYDROX/SIMETH ES 30 ML SUSPENSION UDCUP PO PRN (14:48)
[2021-09-04 16:14] VITALS: BP 137/74
[2021-09-04 16:31] LABS: GLUCOMETER DEV NAME(LOC) 3E.C; GLUCOSE,POINT OF CARE 173 MG/DL (70-110)
[2021-09-04] MEDS: TraZODone HCL 50 MG TABLET PO SCH (21:07)
[2021-09-04 21:26] LABS: GLUCOMETER DEV NAME(LOC) 3E.C; GLUCOSE,POINT OF CARE 161 MG/DL (70-110)
[2021-09-05 06:36] LABS: GLUCOMETER DEV NAME(LOC) 3E.C; GLUCOSE,POINT OF CARE 124 MG/DL (70-110)
[2021-09-05] MEDS: MetFORMIN HCL 500 MG TABLET PO SCH ×2 (07:00→16:35)
[2021-09-05] MEDS: INSULIN LISPRO 100 UNITS/ML SQ PRN ×2 (07:00→17:10)
[2021-09-05 08:00] VITALS: BP 157/91
[2021-09-05] MEDS: QUEtiapine FUMARATE 100 MG TABLET PO PRN ×2 (08:49→16:36)
[2021-09-05] MEDS: LISINOPRIL 10 MG TABLET PO SCH (08:49)
[2021-09-05] MEDS: PARoxetine HCL 20 MG TABLET PO SCH (08:49)
[2021-09-05] MEDS: RisperiDONE 2 MG TABLET PO SCH ×2 (08:49→16:35)
[2021-09-05 11:47] LABS: GLUCOMETER DEV NAME(LOC) 3E.I 2; GLUCOSE,POINT OF CARE 137 MG/DL (70-110)
[2021-09-05 16:09] VITALS: BP 157/91
[2021-09-05] MEDS: TraZODone HCL 50 MG TABLET PO SCH (20:39)
[2021-09-05 20:46] LABS: GLUCOMETER DEV NAME(LOC) 3E.C; GLUCOSE,POINT OF CARE 152 MG/DL (70-110)
[2021-09-05 20:46] LABS: GLUCOMETER DEV NAME(LOC) 3E.C; GLUCOSE,POINT OF CARE 160 MG/DL (70-110)
[2021-09-06 06:16] LABS: GLUCOMETER DEV NAME(LOC) 3E.C; GLUCOSE,POINT OF CARE 130 MG/DL (70-110)
[2021-09-06] MEDS: INSULIN LISPRO 100 UNITS/ML SQ PRN ×4 (06:36→20:54)
[2021-09-06] MEDS: MetFORMIN HCL 500 MG TABLET PO SCH ×2 (06:42→17:09)
[2021-09-06] MEDS: QUEtiapine FUMARATE 100 MG TABLET PO PRN ×2 (07:49→15:59)
[2021-09-06] MEDS: PARoxetine HCL 20 MG TABLET PO SCH (07:49)
[2021-09-06] MEDS: RisperiDONE 2 MG TABLET PO SCH ×2 (07:49→15:59)
[2021-09-06] MEDS: LISINOPRIL 10 MG TABLET PO SCH (07:50)
[2021-09-06 08:00] VITALS: BP 138/87
[2021-09-06 12:06] LABS: GLUCOMETER DEV NAME(LOC) 3E.C; GLUCOSE,POINT OF CARE 154 MG/DL (70-110)
[2021-09-06 17:07] LABS: GLUCOMETER DEV NAME(LOC) 3E.C; GLUCOSE,POINT OF CARE 179 MG/DL (70-110)
[2021-09-06 18:20] VITALS: BP 105/70
[2021-09-06] MEDS: TraZODone HCL 50 MG TABLET PO SCH (20:45)
[2021-09-06 21:06] LABS: GLUCOMETER DEV NAME(LOC) 3E.C; GLUCOSE,POINT OF CARE 153 MG/DL (70-110)
[2021-09-07 06:06] LABS: GLUCOMETER DEV NAME(LOC) 3E.C; GLUCOSE,POINT OF CARE 180 MG/DL (70-110)
[2021-09-07] MEDS: INSULIN LISPRO 100 UNITS/ML SQ PRN ×3 (06:34→16:28)
[2021-09-07] MEDS: MetFORMIN HCL 500 MG TABLET PO SCH ×2 (06:37→17:29)
[2021-09-07 08:00] VITALS: BP 138/81
[2021-09-07] MEDS: LISINOPRIL 10 MG TABLET PO SCH (10:01)
[2021-09-07] MEDS: QUEtiapine FUMARATE 100 MG TABLET PO PRN ×2 (10:01→16:05)
[2021-09-07] MEDS: PARoxetine HCL 20 MG TABLET PO SCH (10:01)
[2021-09-07] MEDS: RisperiDONE 2 MG TABLET PO SCH ×2 (10:01→16:05)
[2021-09-07 10:56] LABS: GLUCOMETER DEV NAME(LOC) 3E.C; GLUCOSE,POINT OF CARE 170 MG/DL (70-110)
[2021-09-07 16:08] VITALS: BP 128/77
[2021-09-07 16:26] LABS: GLUCOMETER DEV NAME(LOC) 3E.C; GLUCOSE,POINT OF CARE 177 MG/DL (70-110)
[2021-09-07] MEDS: TraZODone HCL 50 MG TABLET PO SCH (20:35)
[2021-09-07 21:01] LABS: GLUCOMETER DEV NAME(LOC) 3E.C; GLUCOSE,POINT OF CARE 121 MG/DL (70-110)
[2021-09-08 06:36] LABS: GLUCOMETER DEV NAME(LOC) 3E.C; GLUCOSE,POINT OF CARE 142 MG/DL (70-110)
[2021-09-08] MEDS: INSULIN LISPRO 100 UNITS/ML SQ PRN ×3 (06:49→17:17)
[2021-09-08] MEDS: MetFORMIN HCL 500 MG TABLET PO SCH ×2 (06:49→17:01)
[2021-09-08 08:17] VITALS: BP 133/81
[2021-09-08] MEDS: LISINOPRIL 10 MG TABLET PO SCH (08:20)
[2021-09-08] MEDS: PARoxetine HCL 20 MG TABLET PO SCH (08:20)
[2021-09-08] MEDS: RisperiDONE 2 MG TABLET PO SCH ×2 (08:20→17:00)
[2021-09-08 11:36] LABS: GLUCOMETER DEV NAME(LOC) 3E.C; GLUCOSE,POINT OF CARE 175 MG/DL (70-110)
[2021-09-08] MEDS: QUEtiapine FUMARATE 100 MG TABLET PO PRN ×2 (11:49→17:10)
[2021-09-08 16:00] VITALS: BP 117/82
[2021-09-08 17:01] LABS: GLUCOMETER DEV NAME(LOC) 3E.C; GLUCOSE,POINT OF CARE 224 MG/DL (70-110)
[2021-09-08] MEDS: TraZODone HCL 50 MG TABLET PO SCH (20:03)
[2021-09-08 20:31] LABS: GLUCOMETER DEV NAME(LOC) 3E.C; GLUCOSE,POINT OF CARE 93 MG/DL (70-110)
[2021-09-09 06:16] LABS: GLUCOMETER DEV NAME(LOC) 3E.C; GLUCOSE,POINT OF CARE 156 MG/DL (70-110)
[2021-09-09] MEDS: MetFORMIN HCL 500 MG TABLET PO SCH ×2 (06:59→16:37)
[2021-09-09] MEDS: INSULIN LISPRO 100 UNITS/ML SQ PRN ×2 (07:02→17:05)
[2021-09-09] MEDS: QUEtiapine FUMARATE 100 MG TABLET PO PRN ×2 (07:38→16:37)
[2021-09-09] MEDS: PARoxetine HCL 20 MG TABLET PO SCH (07:38)
[2021-09-09] MEDS: LISINOPRIL 10 MG TABLET PO SCH (07:38)
[2021-09-09] MEDS: RisperiDONE 2 MG TABLET PO SCH ×2 (07:38→16:37)
[2021-09-09 08:21] VITALS: BP 141/77
[2021-09-09 12:36] LABS: GLUCOMETER DEV NAME(LOC) 3E.C; GLUCOSE,POINT OF CARE 107 MG/DL (70-110)
[2021-09-09] MEDS: MAG HYDROX/AL HYDROX/SIMETH ES 30 ML SUSPENSION UDCUP PO PRN (12:51)
[2021-09-09 16:07] VITALS: BP 134/79
[2021-09-09 16:45] LABS: GLUCOMETER DEV NAME(LOC) 3E.C; GLUCOSE,POINT OF CARE 214 MG/DL (70-110)
[2021-09-09] MEDS: TraZODone HCL 50 MG TABLET PO SCH (20:28)
[2021-09-09 20:31] LABS: GLUCOMETER DEV NAME(LOC) 3E.C; GLUCOSE,POINT OF CARE 105 MG/DL (70-110)
[2021-09-10 06:56] LABS: GLUCOMETER DEV NAME(LOC) 3E.C; GLUCOSE,POINT OF CARE 150 MG/DL (70-110)
[2021-09-10] MEDS: MetFORMIN HCL 500 MG TABLET PO SCH ×2 (06:56→16:56)
[2021-09-10] MEDS: INSULIN LISPRO 100 UNITS/ML SQ PRN ×2 (07:05→17:22)
[2021-09-10] MEDS: LISINOPRIL 10 MG TABLET PO SCH (08:03)
[2021-09-10] MEDS: RisperiDONE 2 MG TABLET PO SCH ×2 (08:03→16:56)
[2021-09-10] MEDS: PARoxetine HCL 20 MG TABLET PO SCH (08:03)
[2021-09-10] MEDS: QUEtiapine FUMARATE 100 MG TABLET PO PRN ×2 (08:03→16:56)
[2021-09-10 08:26] VITALS: BP 123/81
[2021-09-10 16:25] VITALS: BP 108/70
[2021-09-10] MEDS: TraZODone HCL 50 MG TABLET PO SCH (21:09)
[2021-09-11] MEDS: MetFORMIN HCL 500 MG TABLET PO SCH ×2 (06:58→16:43)
[2021-09-11] MEDS: INSULIN LISPRO 100 UNITS/ML SQ PRN ×3 (07:01→17:30)
[2021-09-11 08:00] VITALS: BP 128/77
[2021-09-11 08:13] LABS: COVID AG,FIA SOURCE NASAL SWAB
[2021-09-11] MEDS: QUEtiapine FUMARATE 100 MG TABLET PO PRN ×2 (09:33→16:43)
[2021-09-11] MEDS: LISINOPRIL 10 MG TABLET PO SCH (09:33)
[2021-09-11] MEDS: PARoxetine HCL 20 MG TABLET PO SCH (09:33)
[2021-09-11] MEDS: RisperiDONE 2 MG TABLET PO SCH ×2 (09:33→16:43)
[2021-09-11 16:11] VITALS: BP 104/79
[2021-09-11 16:16] LABS: GLUCOMETER DEV NAME(LOC) 3E.C; GLUCOSE,POINT OF CARE 172 MG/DL (70-110)
[2021-09-11 16:18] LABS: GLUCOMETER DEV NAME(LOC) 3E.C; GLUCOSE,POINT OF CARE 147 MG/DL (70-110)
[2021-09-11 16:32] LABS: GLUCOMETER DEV NAME(LOC) 3E.C; GLUCOSE,POINT OF CARE 145 MG/DL (70-110)
[2021-09-11 16:32] LABS: GLUCOMETER DEV NAME(LOC) 3E.C; GLUCOSE,POINT OF CARE 149 MG/DL (70-110)
[2021-09-11 16:37] LABS: GLUCOMETER DEV NAME(LOC) 3E.C; GLUCOSE,POINT OF CARE 155 MG/DL (70-110)
[2021-09-11 16:37] LABS: GLUCOMETER DEV NAME(LOC) 3E.C; GLUCOSE,POINT OF CARE 147 MG/DL (70-110)
[2021-09-11 16:38] LABS: GLUCOMETER DEV NAME(LOC) 3E.C; GLUCOSE,POINT OF CARE 103 MG/DL (70-110)
[2021-09-11 16:39] LABS: GLUCOMETER DEV NAME(LOC) 3E.C; GLUCOSE,POINT OF CARE 149 MG/DL (70-110)
[2021-09-11 16:39] LABS: GLUCOMETER DEV NAME(LOC) 3E.C; GLUCOSE,POINT OF CARE 145 MG/DL (70-110)
[2021-09-11] MEDS: TraZODone HCL 50 MG TABLET PO SCH (20:27)
[2021-09-11 20:41] LABS: GLUCOMETER DEV NAME(LOC) 3E.C; GLUCOSE,POINT OF CARE 57 MG/DL (70-110)
[2021-09-11 21:16] LABS: GLUCOMETER DEV NAME(LOC) 3E.C; GLUCOSE,POINT OF CARE 94 MG/DL (70-110)
[2021-09-12 06:26] LABS: GLUCOMETER DEV NAME(LOC) 3E.C; GLUCOSE,POINT OF CARE 127 MG/DL (70-110)
[2021-09-12] MEDS: MetFORMIN HCL 500 MG TABLET PO SCH (06:36)
[2021-09-12 08:23] VITALS: BP 121/76
[2021-09-12] MEDS: QUEtiapine FUMARATE 100 MG TABLET PO PRN (09:05)
[2021-09-12] MEDS: PARoxetine HCL 20 MG TABLET PO SCH (09:05)
[2021-09-12] MEDS: RisperiDONE 2 MG TABLET PO SCH (09:05)
[2021-09-12] MEDS: LISINOPRIL 10 MG TABLET PO SCH (09:05)
[2021-09-12] MEDS ORDERED: LISI10TA24 PO (15:51)
[2021-09-12] MEDS ORDERED: METF-1211 PO ×2 (15:53→20:25)
[2021-09-12] MEDS ORDERED: RISP2TAB76 PO ×2 (15:54→20:57)
[2021-09-12] MEDS ORDERED: PARO-38 PO (15:55)
[2021-09-12] MEDS ORDERED: TRAZ-184 PO ×2 (15:56→20:57)
[2021-09-12] MEDS ORDERED: LISI-893 PO (20:25)
[2021-09-12] MEDS ORDERED: PARO30TA76 PO (20:57)
== END 2021-09-12 16:45 | disposition home or self-care (01) | DRG 750 ==
LOC: EMS 08:24 → B2S 16:25 → 3EC 19:06
PROVIDERS: ADMIT Psychiatry & Neurology Psychiatry; ATTEND Psychiatry & Neurology Psychiatry
DX: F20.0 Paranoid schizophrenia (principal); E11.9 Type 2 diabetes mellitus without complications; F12.90 Cannabis use, unspecified, uncomplicated; F43.10 Post-traumatic stress disorder, unspecified; Z20.822 Contact with and (suspected) exposure to COVID-19; G47.00 Insomnia, unspecified; K59.00 Constipation, unspecified; I10 Essential (primary) hypertension; F41.9 Anxiety disorder, unspecified; Z59.02 Unsheltered homelessness; Z91.14 Patient's other noncompliance with medication regimen; Z72.0 Tobacco use; Z71.6 Tobacco abuse counseling
CPT/HCPCS: 80053; 80061; 81003; 82962; 83036; 83540; 83550; 85025; 87081; 99285; G0480; J1200; J1630; J2060

== ENCOUNTER 2021-12-04 11:29 | Emergency (ER) | payer MEDICAID, OTHER ==
[~2021-12-04] VITALS: Ht 175.3 cm; Wt 108.6 kg
[~2021-12-04 11:29] MED LIST changes: +LISI10TA24 PO; +PARO-38 PO; +PARO30TA76 PO; +RISP2TAB76 PO; -SERT-162 PO; +TRAZ-184 PO
[2021-12-04 11:46] LABS: COVID AG,FIA SOURCE NASOPHARYNGEAL
[2021-12-04 11:48] VITALS: BP 116/54
[2021-12-04 11:48] LABS: BASOPHILS % (AUTO) 0.4 % (0.0-2.0); EOSINOPHILS % (AUTO) 1.1 % (1.0-6.0); HEMATOCRIT 41.4 % (41-53); HEMOGLOBIN 13.9 g/dL (13.5-17.5); LYMPHOCYTES # (AUTO) 1.1 K/uL (1.0-4.8); LYMPHOCYTES % (AUTO) 16.3 % (22.0-44.0); MEAN CORPUSCULAR HEMOGLOBIN 31.7 pg (26.0-34.0); MEAN CORPUSCULAR HGB CONC 33.5 G/dL (31.0-37.0); MEAN CORPUSCULAR VOLUME 95 fL (80-100); MONOCYTES # (AUTO) 0.4 K/uL (0.1-1.0); MONOCYTES % (AUTO) 5.7 % (2.0-9.0); NEUTROPHILS # (AUTO) 5.2 K/uL (1.8-7.7); NEUTROPHILS % (AUTO) 76.5 % (40.0-70.0); PLATELET COUNT (AUTO) 203 K/uL (150-450); RED BLOOD CELL COUNT(AUTO) 4.38 MIL/uL (4.50-5.90)
[2021-12-04 11:57] LABS: ANION GAP 12 mmol/L (8-16); CALCIUM, TOTAL 8.8 mg/dL (8.8-10.5); CARBON DIOXIDE 25 mmol/L (22-29); CHLORIDE 101 mmol/L (98-107); CREATININE 1.06 mg/dL (0.60-1.30); GLOMERULAR FILTR. RATE CALC > 60 mL/min (>60); GLUCOSE,RANDOM 300 mg/dL (70-110); POTASSIUM 3.8 mmol/L (3.5-5.1); SODIUM SERUM 138 mmol/L (136-145); UREA NITROGEN, BLOOD 17 mg/dL (7-18)
[2021-12-04 12:03] LABS: ALANINE AMINOTRANSFERASE 25 U/L (12-78); ALBUMIN 3.8 g/dL (3.4-5.0); ALKALINE PHOSPHATASE 72 U/L (46-116); ASPARTATE AMINOTRANSFERASE 12 U/L (15-37); BILIRUBIN,TOTAL 0.5 mg/dL (0.1-1.0); TOTAL PROTEIN, SERUM 7.1 g/dL (6.4-8.2)
[2021-12-04] MEDS ORDERED: RisperiDONE 1 MG TABLET PO ONE (13:30)
[2021-12-04] MEDS ORDERED: PARO30TA76 PO (13:41)
[2021-12-04] MEDS ORDERED: RISP2TAB45 PO (13:41)
[2021-12-04] MEDS ORDERED: TRAZ-252 PO (13:41)
== END 2021-12-04 14:18 | disposition home or self-care (01) ==
LOC: EMS 11:29
DX: F20.9 Schizophrenia, unspecified (principal); F41.9 Anxiety disorder, unspecified; F32.A Depression, unspecified; E11.9 Type 2 diabetes mellitus without complications; G43.909 Migraine, unspecified, not intractable, without status migrainosus; Z87.19 Personal history of other diseases of the digestive system; Z86.59 Personal history of other mental and behavioral disorders; Z87.898 Personal history of other specified conditions; Z91.030 Bee allergy status; Z20.822 Contact with and (suspected) exposure to COVID-19
CPT/HCPCS: 99285; 87426; 80053; 85025; 36415; G0480